=== PATIENT | male | born 1990 | race Caucasian/White ===

== ENCOUNTER 2022-03-20 23:33 | Emergency (ER) | payer BC ==
[~2022-03-20] VITALS: Ht 180.3 cm; Wt 93.4 kg
[2022-03-20 23:58] VITALS: BP 149/89
== END 2022-03-21 03:30 | disposition left against medical advice (07) ==
LOC: ER 23:33
DX: Z53.21 Procedure and treatment not carried out due to patient leaving prior to being seen by health care provider (principal)